=== PATIENT | female | born 1970 | race African-American/Black ===

== ENCOUNTER 2016-12-01 15:01 | Emergency (ER) | payer BC ==
[~2016-12-01] VITALS: Ht 157.5 cm; Wt 65.0 kg
[~2016-12-01 15:01] MED LIST: DIFL500T PO; HYDR7.5T32 OR
[2016-12-01 15:04] VITALS: BP 155/74; PULSE 75; RESP 12; TEMP 98.4; O2SAT 98
[2016-12-02] MEDS ORDERED: ULTR50TA5 PO (14:42)
[2016-12-02] MEDS ORDERED: ZOFR4TAB3 SL (14:42)
== END 2016-12-01 16:03 | disposition left against medical advice (07) ==
LOC: NED 15:01
DX: R10.9 Unspecified abdominal pain (principal)
CPT/HCPCS: 99281

== ENCOUNTER 2016-12-02 10:00 | Emergency (ER) | payer BC ==
[~2016-12-02] VITALS: Ht 157.5 cm; Wt 65.0 kg
[2016-12-02 10:02] VITALS: BP 182/77; PULSE 75; RESP 12; TEMP 97.6; O2SAT 99
[2016-12-02 10:41] LABS: AUTOMATED NEUTROPHIL # 7.7 TH/MM3 (1.8-7.7); BASOPHIL % 0.4 % (0.0-2.0); EOSINOPHIL # 0.1 TH/MM3 (0-0.4); EOSINOPHIL % 1.2 % (0.0-4.0); HEMATOCRIT 43.6 % (35.0-46.0); HEMO FLAGS DIFF FINAL; LYMPH % 21.5 % (9.0-44.0); LYMPHOCYTE # 2.4 TH/MM3 (1.0-4.8); MEAN CELL VOLUME 93.6 FL (80.0-100.0); MEAN CORPUSCULAR HEMOGLOBIN 31.5 PG (27.0-34.0); MEAN CORPUSCULAR HGB CONC 33.6 % (32.0-36.0); MONO % 7.4 % (0.0-8.0); NEUT % 69.5 % (16.0-70.0); PLATELET COUNT 295 TH/MM3 (150-450); RED BLOOD COUNT 4.66 MIL/MM3 (4.00-5.30); RED CELL DISTRIBUTION WIDTH 13.1 % (11.6-17.2)
[2016-12-02 10:53] LABS: BACTERIA, URINE RARE /hpf; BLOOD, URINE NEG (NEG); GLUCOSE,URINE NEG (NEG); KETONE, URINE NEG (NEG); NITRITE,URINE NEG (NEG); PH, URINE 7.5 (5.0-8.5); SQUAMOUS EPITHELIAL CELL URINE <1 /hpf (0-5); URINE COLOR COLORLESS (YELLW/STRAW)
[2016-12-02 10:53] LABS: ANION GAP 7 MEQ/L (5-15); AST (GOT) 12 U/L (15-37); BICARBONATE 26.6 MEQ/L (21.0-32.0); BLOOD UREA NITROGEN 3 MG/DL (7-18); CHLORIDE 106 MEQ/L (98-107); GLOMERULAR FILTRATION RATE 150 ML/MIN (>89); POTASSIUM 3.6 MEQ/L (3.5-5.1); SODIUM (NA) 140 MEQ/L (136-145)
[2016-12-02 10:54] LABS: COMMENT (UR) CULT NOT INDICATED; CULTURE IF INDICATED CULT NOT INDICATED
[2016-12-02 10:57] LABS: ALKALINE PHOSPHATASE 117 U/L (45-117); ALT (GPT) 23 U/L (10-53); TOTAL BILIRUBIN ADULT 0.4 MG/DL (0.2-1.0)
[2016-12-02] MEDS ORDERED: MORPHINE SULFATE 8 MG/ML INJ IV PUSH ONE (11:30)
[2016-12-02] MEDS ORDERED: ONDANSETRON HCL 4 MG/2 ML VIAL IV PUSH ONE (11:30)
--- NOTE | 2016-12-02 11:33 | PD ---
HPI Chief Complaint: Abdominal Pain Time Seen by Provider: 11:14 Travel History International Travel<30 days: No Contact w/Intl Traveler<30days: No Traveled to known affect area: No History of Present Illness HPI Patient is a 46-year-old female presents emergency Department with "excruciating " abdominal pain particularly around the left side of her abdomen. States she' s not had a bowel movement in several days is tried using laxatives but that makes her pain worse. Denies any vaginal bleeding vaginal discharge. Patient states she's had a hysterectomy before. Mild nausea without vomiting. Patient states the pain for the past 2 days cramping in nature. PFSH Past Medical History Cancer: No Diabetes: No Hepatitis: No Hiatal Hernia: No Thyroid Disease: No ?: Not Tubal Ligation: Yes Past Surgical History Abdominal Surgery: Yes (GALLBLADDER, HYSTERECTOMY,) Cardiac Surgery: No Section: Yes Cholecystectomy: Yes Ear Surgery: No Endocrine Surgery: No Eye Surgery: No Genitourinary Surgery: No Gynecologic Surgery: No Hysterectomy: Yes (UTERUS) Oral Surgery: No Thoracic Surgery: No Social History Alcohol Use: No Tobacco Use: Yes Substance Use: No Allergies-Medications (Allergen,Severity, Reaction): Coded Allergies: No Known Allergies (Unverified , 12/02/16) Reported Meds & Prescriptions Reported Meds & Active Scripts Active Zofran Odt (Ondansetron Odt) 4 Mg Tab 4 Mg SL Q6HR PRN Ultram (Tramadol HCl) 50 Mg Tab 50 Mg PO Q6H PRN Review of Systems Except as stated in HPI: all other systems reviewed are Neg Physical Exam Narrative GENERAL: Well-developed, uncomfortable appearance but nontoxic appearance. SKIN: Warm and dry. HEAD: Atraumatic. Normocephalic. EYES: Pupils equal and round. No scleral icterus. No injection or drainage. ENT: No nasal bleeding or discharge. Mucous membranes pink and moist. NECK: Trachea midline. No JVD. CARDIOVASCULAR: Regular rate and rhythm. No murmur appreciated. RESPIRATORY: No accessory muscle use. Clear to auscultation. Breath sounds equal bilaterally. GASTROINTESTINAL: Abdomen soft, moderately tender in the left lower quadrant, nondistended. Hepatic and splenic margins not palpable. 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 Minimal yeast-like discharge. No CMT, no BMT. No adenexal fullness. No external or internal lesion. MUSCULOSKELETAL: No obvious deformities. No clubbing. No cyanosis. No edema. NEUROLOGICAL: Awake and alert. No obvious cranial nerve deficits. Motor grossly within normal limits. Normal speech. PSYCHIATRIC: Appropriate mood and affect; insight and judgment normal. Data Data Last Documented VS Vital Signs Date Time Temp Pulse Resp B/P Pulse Ox O2 Delivery O2 Flow Rate FiO2 12/02/16 11:51 16 12/02/16 11:45 62 126/72 96 Room Air 12/02/16 10:02 97.6 Orders Complete Blood Count With Diff (12/02/16 10:06) Comprehensive Metabolic Panel (12/02/16 10:06) Urinalysis - C+S If Indicated (12/02/16 10:06) Iv Access Insert/Monitor (12/02/16 10:06) Oxygen Administration (12/02/16 10:06) Oximetry (12/02/16 10:06) Lipase (12/02/16 10:06) Ct Abd/Pel W Iv Contrast(Rout) (12/02/16 ) Morphine Inj (Morphine Inj) (12/02/16 11:30) Ondansetron Inj (Zofran Inj) (12/02/16 11:30) Iohexol 350 Inj (Omnipaque 350 Inj) (12/02/16 12:04) Wet Prep Profile (12/02/16 13:41) Gc And Chlamydia Pcr (12/02/16 13:41) Fluconazole (Diflucan) (12/02/16 14:15) Labs Laboratory Tests Test 12/02/16 12/02/16 12/02/16 10:20 10:21 14:12 Urine Color COLORLESS Urine Turbidity CLEAR Urine pH 7.5 Urine Specific [place] 1.001 Urine Protein NEG mg/dL Urine Glucose (UA) NEG mg/dL Urine Ketones NEG mg/dL Urine Occult Blood NEG Urine Nitrite NEG Urine Bilirubin NEG Urine Urobilinogen LESS THAN 2.0 MG/DL Urine Leukocyte Esterase NEG Urine Squamous Epithelial <1 /hpf Cells Urine Bacteria RARE /hpf Microscopic Urinalysis Comment CULT NOT INDICATED White Blood Count 11.0 TH/MM3 Red Blood Count 4.66 MIL/MM3 Hemoglobin 14.7 GM/DL Hematocrit 43.6 % Mean Corpuscular Volume 93.6 FL Mean Corpuscular Hemoglobin 31.5 PG Mean Corpuscular Hemoglobin 33.6 % Concent Red Cell Distribution Width 13.1 % Platelet Count 295 TH/MM3 Mean Platelet Volume 8.8 FL Neutrophils (%) (Auto) 69.5 % Lymphocytes (%) (Auto) 21.5 % Monocytes (%) (Auto) 7.4 % Eosinophils (%) (Auto) 1.2 % Basophils (%) (Auto) 0.4 % Neutrophils # (Auto) 7.7 TH/MM3 Lymphocytes # (Auto) 2.4 TH/MM3 Monocytes # (Auto) 0.8 TH/MM3 Eosinophils # (Auto) 0.1 TH/MM3 Basophils # (Auto) 0.0 TH/MM3 CBC Comment DIFF FINAL Differential Comment Sodium Level 140 MEQ/L Potassium Level 3.6 MEQ/L Chloride Level 106 MEQ/L Carbon Dioxide Level 26.6 MEQ/L Anion Gap 7 MEQ/L Blood Urea Nitrogen 3 MG/DL Creatinine 0.53 MG/DL Estimat Glomerular Filtration 150 ML/MIN Rate Random Glucose 94 MG/DL Calcium Level 9.0 MG/DL Total Bilirubin 0.4 MG/DL Aspartate Amino Transf 12 U/L (AST/SGOT) Alanine Aminotransferase 23 U/L (ALT/SGPT) Alkaline Phosphatase 117 U/L Total Protein 7.9 GM/DL Albumin 4.2 GM/DL Lipase 100 U/L Clue Cells (Wet Prep) NONE SEEN Vaginal Trichomonas (Wet Prep) NONE SEEN Vaginal Yeast (Wet Prep) NONE SEEN Chlamydia trachomatis DNA NOT DETECTED (PCR) Neisseria gonorrhoeae DNA NOT DETECTED (PCR) MDM Medical Decision Making Medical Screen Exam Complete: Yes Emergency Medical Condition: Yes Differential Diagnosis Constipation, diverticulitis, diverticulosis. Narrative Course Patient roomed in the ER. She appears uncomfortable but abdomen is soft. Has tenderness in LLQ. S/P hysterectomy. Patient undergoes pelvic exam which is benign. Workup with CBC/CMP/UA/CT abdpelvis are all reassuring. D/w patient no definative cause of her abdominal pain is identified. She is more comfortable. DIscussed need for follow up with PCP. Discussed return to ED criteria. Patient fairly insistent for pain medication on discharge. Will oblige. Diagnosis Primary Impression: Abdominal pain Qualified Code: R10.32 - Left lower quadrant pain Additional Impression: Yeast infection Med/Other Pt SpecificInfo: Prescription(s) given Scripts Ondansetron Odt (Zofran Odt)4 Mg Tab4 Mg SL Q6HR PRN (Nausea/Vomiting) #30 TAB Ref 0 Prov:Darrion Haney MD 12/02/16 Tramadol (Ultram)50 Mg Tab50 Mg PO Q6H PRN (PAIN) #12 TAB Ref 0 Prov:Darrion Haney MD 12/02/16 Disposition: 01 DISCHARGE HOME Condition: Stable Darrion Haney MD Dec 02, 2016 11:33
[2016-12-02 11:35] VITALS: O2SAT 98
[2016-12-02 11:45] VITALS: BP 126/72; PULSE 62; RESP 16; O2SAT 96
[2016-12-02 11:51] VITALS: RESP 16
[2016-12-02] MEDS ORDERED: IOHEXOL 350 MG/ML 10 ML VIAL (for RAD DIAG) IV ONE (12:04)
--- NOTE | 2016-12-02 12:56 | RADRPT ---
EXAM DATE/TIME: 12/02/2016 11:57 [facility] COMPARISON: No previous studies available for comparison. INDICATIONS : Left side abdominal pain and constipation x 3 days. Nausea. IV CONTRAST: 90 cc Omnipaque 350 (iohexol) IV ORAL CONTRAST: No oral contrast ingested. RADIATION DOSE: 7.29 CTDIvol (mGy) MEDICAL HISTORY : None SURGICAL HISTORY : Cholecystectomy. section.Tubal ligation.Hysterectomy, coils in pelvic vein. ENCOUNTER: Initial ACUITY: 3 days PAIN SCALE: 5/10 LOCATION: Left lower quadrant TECHNIQUE: Volumetric scanning of the abdomen and pelvis was performed. Using automated exposure control and ad justment of the mA and/or kV according to patient size, radiation dose was kept as low as reasonably achievable to obtain optimal diagnostic quality images. FINDINGS: LOWER LUNGS: The visualized lower lungs are clear. LIVER: Homogeneous density without lesion. There is no dilation of the biliary tree. The patient is status post cholecystectomy. No calcified gallstones. SPLEEN: Normal size without lesion. PANCREAS: Within normal limits. KIDNEYS: Normal in size and shape. There is no mass, stone or hydronephrosis. ADRENAL GLANDS: Within normal limits. VASCULAR: There is no aortic aneurysm. Embolization coils are noted within the expected region of the left gona damián vein BOWEL/MESENTERY: Uncomplicated colonic diverticulosis is noted. No acute diverticulitis is noted. ABDOMINAL WALL: Within normal limits. RETROPERITONEUM: There is no lymphadenopathy. BLADDER: No wall thickening or mass. REPRODUCTIVE: Within normal limits. INGUINAL: There is no lymphadenopathy or hernia. MUSCULOSKELETAL: Within normal limits for patient age. CONCLUSION: 1. Uncomplicated colonic diverticulosis. 2. No acute intra-abdominal process. Darrion Brito MD on December 02, 2016 at 12:51 Board Certified Radiologist. This report was verified electronically.
[2016-12-02] MEDS ORDERED: FLUCONAZOLE 100 MG TAB PO ONE (14:15)
[2016-12-02] MEDS ORDERED: ZOFR4TAB3 SL (14:42)
[2016-12-02] MEDS ORDERED: ULTR50TA5 PO (14:42)
[2016-12-02 16:32] LABS: CHLAMYDIA PCR NOT DETECTED (NOT DETECT); NEISSERIA PCR NOT DETECTED (NOT DETECT)
== END 2016-12-02 14:46 | disposition home or self-care (01) ==
LOC: NEPB 10:00
DX: R10.9 Unspecified abdominal pain (principal); B37.9 Candidiasis, unspecified; Z90.710 Acquired absence of both cervix and uterus; Z72.0 Tobacco use
CPT/HCPCS: 74177; 80053; 81001; 83690; 85025; 87210; 87491; 87591; 96374; 96375; 99284; J2270; J2405; Q9967

== ENCOUNTER 2017-02-02 11:20 | Emergency (ER) | payer BC ==
[~2017-02-02] VITALS: Ht 157.5 cm; Wt 66.0 kg
[~2017-02-02 11:20] MED LIST changes: -DIFL500T PO; -HYDR7.5T32 OR; +ULTR50TA5 PO; +ZOFR4TAB3 SL
[2017-02-02 11:22] VITALS: BP 145/78; PULSE 82; RESP 20; TEMP 98.7; O2SAT 99
--- NOTE | 2017-02-02 11:25 | PD ---
Physical Exam Time Seen by Provider: 11:23 Narrative 46 yowf presents with Right wrist pain, throbbing/shooting pain, feels that it is secondary to increased typing at work. Symptoms started yesterday. VSS Seen at triage desk. Awaiting bed placement. Data Data Last Documented VS Vital Signs Date Time Temp Pulse Resp B/P Pulse Ox O2 Delivery O2 Flow Rate FiO2 02/02/17 11:22 98.7 82 20 145/78 99 Room Air [facility] Medical Record Reviewed: Yes Supervised Visit with KIARRA: Yes Klever Morrison Feb 02, 2017 11:25
[2017-02-02] MEDS ORDERED: PRED-503 PO (11:36)
[2017-02-02] MEDS ORDERED: IBUP800T23 PO (11:36)
--- NOTE | 2017-02-02 11:37 | PD ---
HPI Chief Complaint: Pain: Acute or Chronic Time Seen by Provider: 11:35 Travel History International Travel<30 days: No Contact w/Intl Traveler<30days: No Traveled to known affect area: No History of Present Illness HPI 46-year-old female presents to emergency Department with complaint of right wrist pain for the past few days. Denies injury. She has been typing a lot more work than normal. She reports numbness and tingling in her fourth and fifth fingers. Denies loss of sensation, decreased range of motion. 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 Denies fever, chills, nausea, vomiting. Has taken Tylenol with minimal pain relief; last taken last night. No known allergies. No other modifying factors or associated signs and symptoms. PFSH Past Medical History Cancer: No Diabetes: No Hepatitis: No Hiatal Hernia: No Thyroid Disease: No ?: Not Tubal Ligation: Yes Past Surgical History Abdominal Surgery: Yes (GALLBLADDER, HYSTERECTOMY,) Cardiac Surgery: No Section: Yes Cholecystectomy: Yes Ear Surgery: No Endocrine Surgery: No Eye Surgery: No Genitourinary Surgery: No Gynecologic Surgery: No Hysterectomy: Yes Oral Surgery: No Thoracic Surgery: No Other Surgery: Yes Social History Alcohol Use: No Tobacco Use: Yes Substance Use: No Allergies-Medications (Allergen,Severity, Reaction): Coded Allergies: No Known Allergies (Unverified , 02/02/17) Reported Meds & Prescriptions Reported Meds & Active Scripts Active Ibuprofen 800 Mg Tab 800 Mg PO Q6HR PRN Deltasone (Prednisone) 20 Mg Tab 40 Mg PO DAILY 5 Days Review of Systems Except as stated in HPI: all other systems reviewed are Neg Physical Exam Narrative GENERAL: Well-nourished, well-developed female patient, in no acute distress SKIN: Warm and dry. HEAD: Atraumatic. Normocephalic. EYES: Pupils equal and round. No scleral icterus. No injection or drainage. ENT: Mucosa pink and moist. Airway patent. NECK: Trachea midline. CARDIOVASCULAR: Regular rate. RESPIRATORY: No accessory muscle use. GASTROINTESTINAL: Flat. MUSCULOSKELETAL: Right wrist is without erythema, edema, ecchymosis; with tenderness on palpation; without obvious deformity; with decreased call center receptionist strength as compared to the left; sensory intact. Right upper approximately supplemented with 2+ radial pulses and sensory intact without erythema or edema. No obvious deformities. No clubbing. No cyanosis. NEUROLOGICAL: Awake and alert. Oriented 3. No obvious cranial nerve deficits. Motor grossly within normal limits. Normal speech. PSYCHIATRIC: Appropriate mood and affect; insight and judgment normal. Data Data Last Documented VS Vital Signs Date Time Temp Pulse Resp B/P Pulse Ox O2 Delivery O2 Flow Rate FiO2 02/02/17 11:22 98.7 82 20 145/78 99 Room Air Orders Splint Or Brace Apply/Monitor (02/02/17 11:34) MDM Medical Decision Making Medical Screen Exam Complete: Yes Emergency Medical Condition: Yes Medical Record Reviewed: Yes Differential Diagnosis Carpal tunnel syndrome, wrist pain, arthritis Narrative Course 46-year-old female with right wrist pain most likely consistent with carpal tunnel syndrome. Denies injury. Wrist splint provider for support. Ibuprofen and Deltasone prescribed for home. Instructed patient to follow up with orthopedic or hand. Patient verbalizes understanding and agreement with treatment plan. Patient is medically cleared and stable for discharge. Discussed reasons to return to the emergency department. Instructed patient to follow up with primary care provider. Patient agrees with treatment plan. The patients vital signs are stable and the patient is stable for outpatient follow- up and treatment. Patient discharged home, stable and in no acute distress. Diagnosis Primary Impression: Right wrist pain Referrals: Primary Care Physician Patient Instructions: Carpal Tunnel Syndrome (ED), General Instructions Additional Instructions: Wrist splint for support; can use at night while sleeping Avoid sleeping on your hands to help ease pain and numbness in your wrist and hand Rotate your wrist and stretch your palms and fingers Take a pain reliever, such as Advil, Motrin, ibuprofen, Aleve as needed and as directed Follow-up with primary care provider Return to the emergency department immediately with worsening of symptoms Med/Other Pt SpecificInfo: Prescription(s) given Scripts Ibuprofen 800 Mg [id number] Mg PO Q6HR PRN (PAIN) #30 TAB Ref 0 Prov:Chelo King 02/02/17 Prednisone (Deltasone)20 Mg Tab40 Mg PO DAILY 5 Days Ref 0 Prov:Chelo King 02/02/17 Disposition: DISCHARGE HOME Condition: Stable Chelo King Feb 02, 2017 11:37
== END 2017-02-02 11:50 | disposition home or self-care (01) ==
LOC: NEPK 11:20
DX: M25.531 Pain in right wrist (principal); R20.0 Anesthesia of skin; R20.2 Paresthesia of skin
CPT/HCPCS: 99283; L3908

== ENCOUNTER 2017-03-31 08:24 | Emergency (ER) | payer BC ==
[~2017-03-31] VITALS: Ht 157.5 cm; Wt 66.0 kg
[~2017-03-31 08:24] MED LIST changes: +IBUP800T23 PO; +PRED-503 PO; -ULTR50TA5 PO; -ZOFR4TAB3 SL
[2017-03-31 08:25] VITALS: BP 134/77; PULSE 83; RESP 16; TEMP 98.3; O2SAT 99
[2017-03-31] MEDS ORDERED: NEOM1SOL17 RIGHT EAR (08:35)
--- NOTE | 2017-03-31 08:38 | PD ---
HPI Chief Complaint: ENT Complaint Time Seen by Provider: 08:30 Travel History International Travel<30 days: No Contact w/Intl Traveler<30days: No Traveled to known affect area: No History of Present Illness HPI 46-year-old female presents for evaluation of right ear pain. Symptoms started 1 week ago. Pain is a throbbing pain, constant, aggravated by otic manipulation. No alleviating factors. Denies any fevers, chills, cough or congestion, sore throat, dental pain, recent travel, recent swimming. No other complaints. PFSH Past Medical History Cancer: No Diabetes: No Hepatitis: No Hiatal Hernia: No Thyroid Disease: No ?: Not Tubal Ligation: Yes Past Surgical History Abdominal Surgery: Yes (GALLBLADDER, HYSTERECTOMY,) Cardiac Surgery: No Section: Yes Cholecystectomy: Yes Ear Surgery: No Endocrine Surgery: No Eye Surgery: No Genitourinary Surgery: No Gynecologic Surgery: No Hysterectomy: Yes (PARTIAL) Oral Surgery: No Thoracic Surgery: No Other Surgery: Yes Social History Alcohol Use: No Tobacco Use: Yes Substance Use: No Allergies-Medications (Allergen,Severity, Reaction): Coded Allergies: No Known Allergies (Unverified , 02/02/17) Reported Meds & Prescriptions Reported Meds & Active Scripts Active Neomycin/Polymyxin/Hydroc 1 % (Pwcjuipx-Eiuzsesew-Bb (Otic)) 1 Sade Sade 4 Drop RIGHT EAR Q6HR 7 Days Ibuprofen 800 Mg Tab 800 Mg PO Q6HR PRN Deltasone (Prednisone) 20 Mg Tab 40 Mg PO DAILY 5 Days Review of Systems General / Constitutional: No: Fever, Chills HENT: Positive: Earache, No: Sore Throat, Rhinitis, Congestion, Ear Discharge Respiratory: Positive: Cough Physical Exam Narrative GENERAL: Well-nourished female in no acute distress SKIN: Warm and dry. HEAD: Atraumatic. Normocephalic. EYES: Pupils equal and round. No scleral icterus. No injection or drainage. ENT: No nasal bleeding or discharge. Mucous membranes pink and moist. Pain with right auricular manipulation. The right external ear canal is mildly erythematous. The tympanic membrane is intact without erythema or fluid level. No mastoid tenderness. NECK: Trachea midline. No JVD. No lymphadenopathy CARDIOVASCULAR: Regular rate and rhythm. No murmur appreciated. RESPIRATORY: No accessory muscle use. Clear to auscultation. Breath sounds equal bilaterally. Data Data Last Documented VS Vital Signs Date Time Temp Pulse Resp B/P Pulse Ox O2 Delivery O2 Flow Rate FiO2 03/31/17 08:25 98.3 83 16 134/77 99 Room Air MDM Medical Decision Making Medical Screen Exam Complete: Yes Emergency Medical Condition: Yes Medical Record Reviewed: Yes Differential Diagnosis Otitis externa, otitis media, eustachian tube dysfunction, referred dental pain , mastoiditis, perforated tympanic membrane Narrative Course 46-year-old female here with one week history of right ear pain. Examination is consistent with right otitis externa. She will be discharged with Cortisporin otic solution. Diagnosis Primary Impression: Right otitis externa Qualified Code: H60.501 - Acute otitis externa of right ear, unspecified type Additional Instructions: Medication as prescribed. Tylenol or Motrin for pain. Avoid water and right ear canal. Return for any emergent medical conditions. Med/Other Pt SpecificInfo: Prescription(s) given Scripts Csjmeczu-Pxsitziki-Up (Otic) (Neomycin/Polymyxin/Hydroc 1 %)1 Sade Sol4 Drop RIGHT EAR Q6HR 7 Days Prov:Vivienne Jimenez MD 03/31/17 Disposition: 01 DISCHARGE HOME Condition: Stable Klever Morrison Mar 31, 2017 08:38
== END 2017-03-31 08:47 | disposition home or self-care (01) ==
LOC: NEPK 08:24
DX: H60.91 Unspecified otitis externa, right ear (principal); Z72.0 Tobacco use
CPT/HCPCS: 99283

== ENCOUNTER 2017-05-11 09:46 | Emergency (ER) | payer BC ==
[~2017-05-11] VITALS: Ht 157.5 cm; Wt 68.0 kg
[2017-05-11 09:49] VITALS: BP 167/92; PULSE 83; RESP 20; TEMP 97.6; O2SAT 100
[2017-05-11] MEDS ORDERED: SODIUM CHLORIDE 0.9% FLUSH 10 ML FLUSH IV FLUSH PRN (10:30)
[2017-05-11] MEDS ORDERED: ONDANSETRON HCL 4 MG/2 ML VIAL IVP ONE (10:30)
[2017-05-11] MEDS ORDERED: MORPHINE SULFATE 8 MG/ML INJ IV PUSH ONE ×2 (10:30→13:00)
--- NOTE | 2017-05-11 10:31 | PD ---
HPI Chief Complaint: Abdominal Pain Time Seen by Provider: 10:24 Travel History International Travel<30 days: No Contact w/Intl Traveler<30days: No Traveled to known affect area: No History of Present Illness HPI 46yo F presents to the ED with c/o diffuse abdominal pain since yesterday. Associated with NBNB vomiting. States she took magnesium because she thought she was constipated but has been having bowel movement, last one was today. Denies any fever, chest pain, sob, dysuria, hematuria, vaginal bleeding or discharge. States tylenol did not help. Multiple abdominal surgeries. PFSH Past Medical History Cancer: No Cardiovascular Problems: No Diabetes: No Diminished Hearing: No Hepatitis: No Hiatal Hernia: No Medical other: No Respiratory: No Immunizations Current: Yes Thyroid Disease: No Tetanus Vaccination: Unknown Influenza Vaccination: No ?: Not Tubal Ligation: Yes Past Surgical History Abdominal Surgery: Yes (GALLBLADDER, HYSTERECTOMY,) Cardiac Surgery: No Section: Yes Cholecystectomy: Yes Ear Surgery: No Endocrine Surgery: No Eye Surgery: No Genitourinary Surgery: No Gynecologic Surgery: Yes (PARTIAL HYSTERECTOMY AND ) Hysterectomy: Yes (PARTIAL) Oral Surgery: No Thoracic Surgery: No Other Surgery: Yes Social History Alcohol Use: No Tobacco Use: Yes Substance Use: No Allergies-Medications (Allergen,Severity, Reaction): Coded Allergies: No Known Allergies (Unverified , 05/11/17) Reported Meds & Prescriptions Reported Meds & Active Scripts Active No Active Prescriptions or Reported Medications Review of Systems Except as stated in HPI: all other systems reviewed are Neg Physical Exam Narrative GENERAL: 46yo F in moderate distress. SKIN: Focused skin assessment warm/dry. HEAD: Atraumatic. Normocephalic. CARDIOVASCULAR: Regular rate and rhythm. No murmur appreciated. RESPIRATORY: No accessory muscle use. Clear to auscultation. Breath sounds equal bilaterally. GASTROINTESTINAL: Abdomen soft, diffuse ttp. No rebound tenderness or guarding. MUSCULOSKELETAL: No obvious deformities. No clubbing. No cyanosis. No edema. NEUROLOGICAL: Awake and alert. No obvious cranial nerve deficits. Motor grossly within normal limits. Normal speech. PSYCHIATRIC: Appropriate mood and affect; insight and judgment normal. Data Data Last Documented VS Vital Signs Date Time Temp Pulse Resp B/P Pulse Ox O2 Delivery O2 Flow Rate FiO2 05/11/17 13:03 72 16 136/66 99 Room Air 05/11/17 09:49 97.6 Orders Complete Blood Count With Diff (05/11/17 10:27) Comprehensive Metabolic Panel (05/11/17 10:27) Lipase (05/11/17 10:27) Prothrombin Time / Inr (Pt) (05/11/17 10:27) Act Partial Throm Time (Ptt) (05/11/17 10:27) Urinalysis - C+S If Indicated (05/11/17 10:27) Ct Abd/Pel W Iv Contrast(Rout) (05/11/17 10:27) Iv Access Insert/Monitor (05/11/17 10:27) Ecg Monitoring (05/11/17 10:27) Oximetry (05/11/17 10:27) Ondansetron Inj (Zofran Inj) (05/11/17 10:30) Sodium Chloride 0.9% Flush (Ns Flush) (05/11/17 10:30) Ed Urine Pregnancytest Poc (05/11/17 10:27) Morphine Inj (Morphine Inj) (05/11/17 10:30) Morphine Inj (Morphine Inj) (05/11/17 13:00) Metoclopramide Inj (Reglan Inj) (05/11/17 13:30) Iohexol 350 Inj (Omnipaque 350 Inj) (05/11/17 14:34) Labs Laboratory Tests Test 05/11/17 05/11/17 10:45 12:20 White Blood Count 13.7 TH/MM3 Red Blood Count 4.60 MIL/MM3 Hemoglobin 14.7 GM/DL Hematocrit 43.5 % Mean Corpuscular Volume 94.5 FL Mean Corpuscular Hemoglobin 31.9 PG Mean Corpuscular Hemoglobin 33.7 % Concent Red Cell Distribution Width 13.1 % Platelet Count 293 TH/MM3 Mean Platelet Volume 9.4 FL Neutrophils (%) (Auto) 84.6 % Lymphocytes (%) (Auto) 9.5 % Monocytes (%) (Auto) 3.3 % Eosinophils (%) (Auto) 0.4 % Basophils (%) (Auto) 2.2 % Neutrophils # (Auto) 11.6 TH/MM3 Lymphocytes # (Auto) 1.3 TH/MM3 Monocytes # (Auto) 0.4 TH/MM3 Eosinophils # (Auto) 0.1 TH/MM3 Basophils # (Auto) 0.3 TH/MM3 CBC Comment AUTO DIFF Differential Comment AUTO DIFF CONFIRMED Prothrombin Time 11.6 SEC Prothromb Time International 1.0 RATIO Ratio Activated Partial 31.3 SEC Thromboplast Time Sodium Level 135 MEQ/L Potassium Level 5.2 MEQ/L Chloride Level 104 MEQ/L Carbon Dioxide Level 24.5 MEQ/L Anion Gap 7 MEQ/L Blood Urea Nitrogen 7 MG/DL Creatinine 0.72 MG/DL Estimat Glomerular Filtration 105 ML/MIN Rate Random Glucose 139 MG/DL Calcium Level 9.1 MG/DL Total Bilirubin 0.4 MG/DL Aspartate Amino Transf 25 U/L (AST/SGOT) Alanine Aminotransferase 18 U/L (ALT/SGPT) Alkaline Phosphatase 122 U/L Total Protein 7.5 GM/DL Albumin 3.8 GM/DL Lipase 112 U/L Urine Color LIGHT-YELLOW Urine Turbidity CLEAR Urine pH 7.5 Urine Specific [place] 1.006 Urine Protein NEG mg/dL Urine Glucose (UA) NEG mg/dL Urine Ketones NEG mg/dL Urine Occult Blood NEG Urine Nitrite NEG Urine Bilirubin NEG Urine Urobilinogen LESS THAN 2.0 MG/DL Urine Leukocyte Esterase NEG Urine RBC 2 /hpf Urine WBC LESS THAN 1 /hpf Microscopic Urinalysis Comment CULT NOT INDICATED MDM Medical Decision Making Medical Screen Exam Complete: Yes Emergency Medical Condition: Yes Differential Diagnosis Obstruction vs. colitis Narrative Course 46yo F with diffuse abdominal pain. Labs reviewed, mild leukocytosis at 13.7. K: 5.2 but slightly hemolyzed. UA negative. Pt given morphine 6mg x2. Pt also given zofran and reglan. CTa/p showed normal examination. Colonic diverticulosis. Appendix is normal. Vital signs normal. Return precautions given. Diagnosis Primary Impression: Abdominal pain Qualified Code: R10.84 - Generalized abdominal pain Patient Instructions: General Instructions Departure Forms: Tests/Procedures Additional Instructions: Please follow up with your PMD for further work up of your abdominal pain. Return to the ED if symptoms worsen. Med/Other Pt SpecificInfo: Prescription(s) given Scripts Acetaminophen (Tylenol)325 Mg Exe659 Mg PO Q6H PRN (PAIN SCALE 1 TO 4) #20 TAB Ref 0 Prov:Maude Rutledge DO 05/11/17 Disposition: 01 DISCHARGE HOME Condition: Stable Maude Rutledge DO May 11, 2017 10:31
[2017-05-11 10:57] VITALS: BP 130/74; PULSE 64; RESP 16; O2SAT 98
[2017-05-11 11:05] LABS: AUTOMATED NEUTROPHIL # 11.6 TH/MM3 (1.8-7.7); BASOPHIL # 0.3 TH/MM3 (0-0.2); BASOPHIL % 2.2 % (0.0-2.0); EOSINOPHIL # 0.1 TH/MM3 (0-0.4); EOSINOPHIL % 0.4 % (0.0-4.0); HEMATOCRIT 43.5 % (35.0-46.0); LYMPH % 9.5 % (9.0-44.0); LYMPHOCYTE # 1.3 TH/MM3 (1.0-4.8); MEAN CELL VOLUME 94.5 FL (80.0-100.0); MEAN CORPUSCULAR HEMOGLOBIN 31.9 PG (27.0-34.0); MEAN CORPUSCULAR HGB CONC 33.7 % (32.0-36.0); MONO % 3.3 % (0.0-8.0); NEUT % 84.6 % (16.0-70.0); PLATELET COUNT 293 TH/MM3 (150-450); RED CELL DISTRIBUTION WIDTH 13.1 % (11.6-17.2); WHITE BLOOD COUNT 13.7 TH/MM3 (4.0-11.0)
[2017-05-11 11:14] LABS: HEMO FLAGS AUTO DIFF
[2017-05-11 11:19] LABS: APTT (PATIENT) 31.3 SEC (24.3-30.1); PROTHROMBIN TIME - PATIENT 11.6 SEC (9.8-11.6)
[2017-05-11 11:33] LABS: ALT (GPT) 18 U/L (10-53)
[2017-05-11 11:35] LABS: ANION GAP 7 MEQ/L (5-15); AST (GOT) 25 U/L (15-37); BICARBONATE 24.5 MEQ/L (21.0-32.0); BLOOD UREA NITROGEN 7 MG/DL (7-18); CHLORIDE 104 MEQ/L (98-107); GLOMERULAR FILTRATION RATE 105 ML/MIN (>89); SODIUM (NA) 135 MEQ/L (136-145)
[2017-05-11 11:36] LABS: ALKALINE PHOSPHATASE 122 U/L (45-117); TOTAL BILIRUBIN ADULT 0.4 MG/DL (0.2-1.0)
[2017-05-11 11:41] LABS: POTASSIUM 5.2 MEQ/L (3.5-5.1)
[2017-05-11 12:02] LABS: SCAN/DIFF AUTO DIFF CONFIRMED
[2017-05-11 12:36] LABS: BLOOD, URINE NEG (NEG); GLUCOSE,URINE NEG (NEG); KETONE, URINE NEG (NEG); NITRITE,URINE NEG (NEG); PH, URINE 7.5 (5.0-8.5); URINE COLOR LIGHT-YELLOW (YELLW/STRAW)
[2017-05-11 12:40] LABS: COMMENT (UR) CULT NOT INDICATED; CULTURE IF INDICATED CULT NOT INDICATED
[2017-05-11 13:03] VITALS: BP 136/66; PULSE 72; RESP 16; O2SAT 99
[2017-05-11] MEDS ORDERED: METOCLOPRAMIDE INJ 10 MG in SODIUM CHLORIDE 0.9% INJ 50 ML IV ONE (13:30)
[2017-05-11] MEDS ORDERED: IOHEXOL 350 MG/ML 10 ML VIAL (for RAD DIAG) IV ONE (14:34)
--- NOTE | 2017-05-11 14:53 | RADRPT ---
EXAM DATE/TIME: 05/11/2017 14:30 [place] COMPARISON: CT ABDOMEN & PELVIS W CONTRAST, December 02, 2016, 11:57. INDICATIONS : Abdominal pain since yesterday IV CONTRAST: 7.74 cc Omnipaque 350 (iohexol) IV ORAL CONTRAST: No oral contrast ingested. RADIATION DOSE: 7.77 CTDIvol (mGy) MEDICAL HISTORY : None SURGICAL HISTORY : Cholecystectomy. Hysterectomy. ENCOUNTER: Initial ACUITY: 1 day PAIN SCALE: 5/10 LOCATION: diffuse abdomen TECHNIQUE: Volumetric scanning of the abdomen and pelvis was performed. Using automated exposure control and ad justment of the mA and/or kV according to patient size, radiation dose was kept as low as reasonably achievable to obtain optimal diagnostic quality images. DICOM format image data is available electro nically for review and comparison. FINDINGS: LOWER LUNGS: The visualized lower lungs are clear. LIVER: Homogeneous density without lesion. There is no dilation of the biliary tree. Cholecystectomy clips. SPLEEN: Normal size without lesion. PANCREAS: Within normal limits. KIDNEYS: Normal in size and shape. There is no mass, stone or hydronephrosis. ADRENAL GLANDS: Within normal limits. VASCULAR: There is no aortic aneurysm. BOWEL/MESENTERY: The stomach, small bowel, and colon demonstrate no acute abnormality. There is no free intraperitone al air or fluid. ABDOMINAL WALL: Within normal limits. RETROPERITONEUM: There is no lymphadenopathy. BLADDER: No wall thickening or mass. REPRODUCTIVE: Within normal limits. INGUINAL: There is no lymphadenopathy or hernia. MUSCULOSKELETAL: Within normal limits for patient age. CONCLUSION: Normal examination. Colonic diverticulosis. Numerous surgical clips overlie the left psoas muscle and retroperitoneum . The appendix is normal . Doyle Small MD on May 11, 2017 at 14:49 Board Certified Radiologist. This report was verified electronically.
[2017-05-11] MEDS ORDERED: TYLE325T PO (15:03)
== END 2017-05-11 15:35 | disposition home or self-care (01) ==
LOC: NEPD 09:46
DX: K57.30 Diverticulosis of large intestine without perforation or abscess without bleeding (principal); R10.84 Generalized abdominal pain
CPT/HCPCS: 74177; 80053; 81001; 83690; 84703; 85025; 85610; 85730; 96365; 96375; 96376; 99285; J2270; J2405; J2765; Q9967